=== PATIENT | female | born 1975 | race Caucasian/White ===

== ENCOUNTER 2023-06-07 08:14 | Day surgery (SDC) | payer OTHER ==
[2023-06-01 11:06] VITALS: BMI 25.9
[2023-06-07 08:30] VITALS: RESP 16
[2023-06-07 12:58] VITALS: BP 109/72; PULSE 68; TEMP 97.4
== END 2023-06-07 11:10 | disposition home or self-care (01) ==
LOC: FASU-ENDO 08:14
PROVIDERS: ATTEND Internal Medicine Gastroenterology
PROC: 0DJD8ZZ Inspection of Lower Intestinal Tract, Via Natural or Artificial Opening Endoscopic (ICD-10-PCS; principal; 2023-06-07 10:01)
DX: Z12.11 Encounter for screening for malignant neoplasm of colon (principal)
CPT/HCPCS: 81025